=== PATIENT | male | born 1935 | race Caucasian/White ===

== ENCOUNTER → 2019-05-28 | Outpatient (CLI) | payer BC ==
--- NOTE | 2019-05-30 09:21 | PE ---
EXAMINATION TYPE: PET CT fusion skull to thigh DATE OF EXAM: 05/28/2019 COMPARISON: Outside CT thorax report May 20, 2019 HISTORY: Solitary pulmonary nodule, abnormal CT. TECHNIQUE: Following the intravenous administration of 8.42 mCi of F-18 FDG, whole body images are p erformed from the skull base to the midthigh. Images are reviewed on the computer in the coronal, ax ial, and sagittal planes. Reconstructed rotating images are created on independent workstation and r eviewed on the computer. A noncontrast CT is performed in conjunction with the PET scan. SCAN: Initial Scan FINDINGS: SKULL BASE AND NECK: No areas of suspicious hypermetabolic uptake. CHEST, MEDIASTINUM, AND HILAR REGION: No significant residual pleural effusions bilaterally. Some anna ear scarring and/or atelectasis in both bases with slightly more nodular component lateral right lung base axial image 122 is ametabolic. No areas of suspicious hypermetabolic uptake. ABDOMEN AND PELVIS: Normal excretion is seen including along course of right ureter. No suspicious hy permetabolic uptake. OSSEOUS STRUCTURES: No suspicious hypermetabolic uptake. OTHER CT: There is cardiomegaly with multi lead pacemaker/AICD. Mild to moderate coronary artery calc ification LAD distribution which is noted marked underlying coronary artery disease. Moderate to lila re right atrial dilatation. Moderate left atrial dilatation. Cine aorta measures up to 4.2 cm in diam eter axial image 96. Diverticula in the sigmoid colon. Enlarged prostate gland consistent with BPH. Small degree of bilate ral subareolar gynecomastia. Multilevel spurring in the thoracolumbar spine. Vacuum disc phenomenon at this space narrowing lumbos acral junction. Grade 1 anterolisthesis L4 on L5. IMPRESSION: No suspicious hypermetabolic uptake to suggest malignancy. Interval resolution of right-s ided pleural effusion. Postinflammatory scarring favored.
== END | disposition home or self-care (01) ==
LOC: RADPETMAIN 12:02
PROVIDERS: ATTEND Family Medicine
DX: R91.8 Other nonspecific abnormal finding of lung field (principal)
CPT/HCPCS: 78815; A9552

== ENCOUNTER → 2023-06-30 | Outpatient (CLI) | payer MEDICARE ==
[2023-06-30 13:51] LABS: Partial Thromboplastin Time 24.7 sec (22.0-30.0); Prothrombin Time 10.7 sec (10.0-12.5)
[2023-06-30 15:30] LABS: Basophils # (A) 0.03 X 10*3/uL (0.00-0.10); Basophils % (A) 0.5 %; Eosinophils # (A) 0.05 X 10*3/uL (0.04-0.35); Eosinophils % (A) 0.8 %; HCT 43.2 % (39.6-50.0); HGB 14.4 g/dL (13.0-17.0); Lymphocytes # (A) 1.32 X 10*3/uL (0.90-5.00); Lymphocytes % (A) 20.5 %; MCH 32.4 pg (27.0-32.0); MCHC 33.3 g/dL (32.0-37.0); MCV 97.3 FL (80.0-97.0); Mean Platelet Volume 10.1 FL (9.5-12.2); Monocytes # (A) 0.82 X 10*3/uL (0.20-1.00); Monocytes % (A) 12.8 %; NRBC Per 100 WBC 0 X 10*3/uL (0.00-0.01); Neutrophils # (A) 4.19 X 10*3/uL (1.80-7.70); Neutrophils % (A) 65.1 %; Platelet Count 284 X 10*3/uL (140-440); RBC 4.44 X 10*6/uL (4.40-5.60); RDW 12.7 % (11.5-14.5); WBC 6.43 X 10*3/uL (4.50-10.00)
[2023-06-30 15:41] LABS: Blood Urea Nitrogen 17.9 mg/dL (9.0-27.0); Calcium 9.8 mg/dL (8.7-10.3); Carbon Dioxide 25.4 mmol/L (21.6-31.8); Chloride 104 mmol/L (96-109); Glucose 78 mg/dL (70-110); Magnesium 2.1 mg/dL (1.5-2.4); Potassium 4.3 mmol/L (3.5-5.5); Sodium 141 mmol/L (135-145)
== END | disposition home or self-care (01) ==
LOC: LABWHC1 12:29
PROVIDERS: ATTEND Internal Medicine Clinical Cardiac Electrophysiology
DX: Z01.89 Encounter for other specified special examinations (principal)
CPT/HCPCS: 36415; 80048; 83735; 85025; 85610; 85730